=== PATIENT | male | born 1940 | race Caucasian/White ===

== ENCOUNTER → 2023-07-13 09:48 | Outpatient (REF) | payer MEDICARE, OTHER, SELFPAY | LOC: EMG 09:48 | PROVIDERS: ATTENDING PHYSICIAN Nurse Practitioner Family | DX: R20.0 Anesthesia of skin (principal); R25.2 Cramp and spasm; G62.9 Polyneuropathy, unspecified | CPT/HCPCS: 95886; 95910 ==

== ENCOUNTER → 2023-08-02 13:52 | Outpatient (REF) | payer MEDICARE, OTHER, SELFPAY | LOC: PAVMRI 13:52 | PROVIDERS: ATTENDING PHYSICIAN Psychiatry & Neurology Neurology; FAMILY PHYSICIAN Internal Medicine Geriatric Medicine | DX: G31.84 Mild cognitive impairment of uncertain or unknown etiology (principal); R90.89 Other abnormal findings on diagnostic imaging of central nervous system | CPT/HCPCS: 70553; A9575 ==

== ENCOUNTER 2023-08-18 10:11 | Outpatient (RCR) | payer MEDICARE, OTHER, SELFPAY | END 2023-08-18 23:59 | disposition home or self-care (01) | LOC: ROT 10:11 | PROVIDERS: ATTENDING PHYSICIAN Psychiatry & Neurology Neurology; FAMILY PHYSICIAN Internal Medicine Geriatric Medicine | DX: R20.9 Unspecified disturbances of skin sensation (principal); Z73.6 Limitation of activities due to disability | CPT/HCPCS: 96125; 97110; 97129; 97130; 97167; 97530; 97535 ==

== ENCOUNTER 2023-09-19 10:32 | Outpatient (RCR) | payer MEDICARE, OTHER, SELFPAY | END 2023-09-19 23:59 | disposition home or self-care (01) | LOC: ROT 10:32 | PROVIDERS: ATTENDING PHYSICIAN Psychiatry & Neurology Neurology; FAMILY PHYSICIAN Internal Medicine Geriatric Medicine | DX: G31.84 Mild cognitive impairment of uncertain or unknown etiology (principal); R41.841 Cognitive communication deficit; R20.9 Unspecified disturbances of skin sensation | CPT/HCPCS: 97110; 97129; 97130; 97530; 97535 ==

== ENCOUNTER → 2024-10-22 09:16 | Outpatient (REF) | payer MEDICARE, OTHER, SELFPAY | LOC: WOUND 09:16 | PROVIDERS: ATTENDING PHYSICIAN Surgery; FAMILY PHYSICIAN Internal Medicine Geriatric Medicine | DX: S60.221A Contusion of right hand, initial encounter (principal); W19.XXXA Unspecified fall, initial encounter | CPT/HCPCS: 97597; 99203 ==

== ENCOUNTER → 2024-11-01 09:15 | Outpatient (REF) | payer MEDICARE, OTHER, SELFPAY | LOC: WOUND 09:15 | PROVIDERS: ATTENDING PHYSICIAN Surgery; FAMILY PHYSICIAN Internal Medicine Geriatric Medicine | DX: S60.221A Contusion of right hand, initial encounter (principal); W10.8XXA Fall (on) (from) other stairs and steps, initial encounter | CPT/HCPCS: 99213 ==

== ENCOUNTER → 2024-11-25 09:19 | Outpatient (REF) | payer MEDICARE, OTHER, SELFPAY | LOC: WOUND 09:19 | PROVIDERS: ATTENDING PHYSICIAN Surgery; FAMILY PHYSICIAN Internal Medicine Geriatric Medicine | DX: S60.221A Contusion of right hand, initial encounter (principal); W19.XXXA Unspecified fall, initial encounter | CPT/HCPCS: 99212 ==